=== PATIENT | female | born 1955 | race Caucasian/White ===

== ENCOUNTER 2019-08-21 17:17 | Emergency (ER) | payer MEDICAID ==
[~2019-08-21] VITALS: Ht 160 cm; Wt 60.0 kg
[~2019-08-21 17:17] MED LIST: ALBU18HF2 INH; ATOR40TA PO; BREX2TAB PO; BUPR150T8 PO; CLON-371 PO; CYCL-1 PO; DESV100T PO; FLUT1DIS4 INH; GABA-532 PO; LEVO175T7 PO; MELO-100 PO; POLY17PO10 PO; PRAZ5CAP PO; SENN-162 PO; TIOT4MIS3 INH; TRIA15OI9 TOP; VOLTAREN GEL 1% TOP
[2019-08-21 17:41] VITALS: BP 125/88
--- NOTE | 2019-08-21 18:30 | NUR ---
Received report and assumed care of patient from DANIEL Madera.
[2019-08-21] MEDS ORDERED: LORazepam 1 MG tablet PO ONE (19:00)
--- NOTE | 2019-08-21 19:00 | NUR ---
PA Bustillos is with patient at this time. No s/s of distress.
[2019-08-21] MEDS ORDERED: HYDR-3686 PO (20:20)
== END 2019-08-21 20:34 | disposition home or self-care (01) ==
LOC: ER 17:18
DX: F41.9 Anxiety disorder, unspecified (principal); J45.909 Unspecified asthma, uncomplicated; G89.29 Other chronic pain; Z90.710 Acquired absence of both cervix and uterus; Z98.890 Other specified postprocedural states; Z56.0 Unemployment, unspecified; Z88.1 Allergy status to other antibiotic agents; Z79.899 Other long term (current) drug therapy
CPT/HCPCS: 99284

== ENCOUNTER 2019-08-23 06:43 | Emergency (ER) | payer MEDICAID ==
[~2019-08-23] VITALS: Ht 157.5 cm; Wt 71.8 kg
[~2019-08-23 06:43] MED LIST changes: +HYDR-3686 PO
[2019-08-23] MEDS ORDERED: QUEtiapine 25mg tablet PO SCH (07:45)
[2019-08-23] MEDS ORDERED: QUEtiapine 25mg tablet PO ONE (08:00)
[2019-08-23 08:12] LABS: BASOPHILS # (AUTO) 0.1 X10'3 (0-0.2); EOSINOPHILS % (AUTO) 0.3 % (0-6); HEMATOCRIT 46.1 % (35.0-45.0); HEMOGLOBIN 15.7 g/dl (12.0-16.0); LYMPHOCYTES # (AUTO) 1.9 X10'3 (1.1-4.8); LYMPHOCYTES % (AUTO) 15.3 % (21-51); MEAN CORPUSCULAR HEMOGLOBIN 30.4 PG (27.0-31.0); MEAN CORPUSCULAR HGB CONC 34.1 g/dL (33.0-36.5); MEAN CORPUSCULAR VOLUME 89.2 FL (78-98); MEAN PLATELET VOLUME 9.6 FL (7.4-10.4); MONOCYTES # (AUTO) 0.6 X10'3 (0-0.9); NEUTROPHILS # (AUTO) 9.8 X10'3 (1.8-7.7); NEUTROPHILS % (AUTO) 78.4 % (42-75); PLATELET COUNT 297 X10'3 (140-440); RED BLOOD COUNT 5.17 X10'6 (4.20-5.60); RED CELL DISTRIBUTION WIDTH 14.1 % (11.5-14.5); WHITE BLOOD COUNT 12.5 X10'3 (4.5-11.0)
--- NOTE | 2019-08-23 08:14 | NUR ---
PATIENT STATES SHE IS FEELING ANXIOUS AND HAS HAD N/V X 2 DAYS. PATIENT IS TAKING MED FOR ANXIETY AND SHE STATES IT IS CAUSING THE N/V. ALERT AND TALKATIVE. APPEARS SLIGHTLY ANXIOUS AT THIS TIME.
[2019-08-23 09:17] LABS: ALANINE AMINOTRANSFERASE 49 U/L (12-78); ALBUMIN 4.1 G/DL (3.4-5.0); ALBUMIN/GLOBULIN RATIO 1.3 (1.1-1.5); ALKALINE PHOSPHATASE 74 IU/L (46-116); ASPARTATE AMINO TRANSFERASE 26 U/L (10-37); BILIRUBIN,TOTAL 0.6 MG/DL (0.1-1.0); BLOOD UREA NITROGEN 13 MG/DL (7-18); BUN/CREATININE RATIO 10.7 (6.6-38.0); CALCIUM 8.9 MG/DL (8.5-10.1); CHLORIDE 105 MMOL/L (99-107); CREATININE 1.21 MG/DL (0.40-0.90); GLUCOSE 103 MG/DL (70-104); POTASSIUM 3.8 MMOL/L (3.5-5.1); TOTAL CARBON DIOXIDE 23.4 MMOL/L (24-32); TOTAL PROTEIN 7.3 G/DL (6.4-8.2); eGFR 45 ML/MIN
[2019-08-23 09:20] LABS: SODIUM 139 MMOL/L (135-145)
[2019-08-23] MEDS ORDERED: LORazepam 2 mg/ml vial IV ONE (09:30)
--- NOTE | 2019-08-23 09:44 | NUR ---
PATIENT IS VISIBLY ANXIOUS AND WANTS TO LEAVE. NURSE SPOKE WITH PATIENT AND ASKED HER WHAT SHE PLANNED TO DO TO HELP HER ANXIETY. PATIENT IS UNABLE TO DECIDE, SO SHE IS STAYING. ORDERED ATIVAN FOR EXTREME ANXIETY FEELINGS AND PATIENT REASSURED TO REST ON GURNEY AND LET THE MEDICATION TAKE EFFECT. PATIENT IS COOPERATIVE AT THIS TIME.
[2019-08-23 09:45] LABS: ANION GAP 11 (8-16)
[2019-08-23 11:20] LABS: CLARITY,URINE CLOUDY (Clear); COLOR,URINE YELLOW (Yellow); GLUCOSE, URINE NEGATIVE (Neg); KETONES,URINE 15 mg/dl (Neg); LEUKOCYTE ESTERASE ,URINE NEGATIVE (Neg); NITRITES, URINE NEGATIVE (Neg); OCCULT BLOOD,URINE NEGATIVE (Neg); PH,URINE 7.5 (4.8-8.0); PROTEIN,URINE NEGATIVE (Neg); UROBILINOGEN,URINE 0.2 E.U/dL (0.2-1.0)
[2019-08-23 11:21] LABS: UA COLLECTION TYPE CLN CATCH MIDSTREAM
[2019-08-23 11:25] VITALS: BP 136/93
[2019-08-23 11:31] LABS: MUCUS STRANDS MODERATE /LPF (Neg); SQUAMOUS EPITHELIAL CELL,UR MANY /LPF (FEW)
[2019-08-23 11:32] LABS: BACTERIA,URINE 1+ /HPF (Neg); RBC,URINE 0-2 /HPF (0-2); WBC,URINE 0-4 /HPF (0-4)
== END 2019-08-23 11:27 | disposition home or self-care (01) ==
LOC: ER 06:44
DX: F41.9 Anxiety disorder, unspecified (principal); J45.909 Unspecified asthma, uncomplicated; G89.29 Other chronic pain; Z90.710 Acquired absence of both cervix and uterus; Z98.890 Other specified postprocedural states; Z60.2 Problems related to living alone; Z88.1 Allergy status to other antibiotic agents; Z79.899 Other long term (current) drug therapy
CPT/HCPCS: 36415; 80053; 81001; 85025; 96374; 99283; J2060

== ENCOUNTER 2019-08-26 11:20 | Emergency (ER) | payer MEDICAID ==
[~2019-08-26] VITALS: Ht 162.6 cm; Wt 71.0 kg
--- NOTE | 2019-08-26 11:42 | NUR ---
Pt brought to bed 26 by Janel ERIC, AOx4, mildly anxious, resting quietly
[2019-08-26 12:18] LABS: BASOPHILS # (AUTO) 0.1 X10'3 (0-0.2); EOSINOPHILS % (AUTO) 0.1 % (0-6); HEMATOCRIT 43.6 % (35.0-45.0); LYMPHOCYTES # (AUTO) 2.1 X10'3 (1.1-4.8); LYMPHOCYTES % (AUTO) 18.1 % (21-51); MEAN CORPUSCULAR HEMOGLOBIN 30.7 PG (27.0-31.0); MEAN CORPUSCULAR HGB CONC 34.4 g/dL (33.0-36.5); MEAN CORPUSCULAR VOLUME 89.4 FL (78-98); MEAN PLATELET VOLUME 9.7 FL (7.4-10.4); MONOCYTES # (AUTO) 0.5 X10'3 (0-0.9); MONOCYTES % (AUTO) 4.4 % (2-12); NEUTROPHILS # (AUTO) 8.8 X10'3 (1.8-7.7); NEUTROPHILS % (AUTO) 76.4 % (42-75); PLATELET COUNT 309 X10'3 (140-440); RED BLOOD COUNT 4.88 X10'6 (4.20-5.60); RED CELL DISTRIBUTION WIDTH 13.9 % (11.5-14.5); WHITE BLOOD COUNT 11.5 X10'3 (4.5-11.0)
[2019-08-26 12:25] LABS: ALANINE AMINOTRANSFERASE 33 U/L (12-78); ALBUMIN 4.1 G/DL (3.4-5.0); ALBUMIN/GLOBULIN RATIO 1.2 (1.1-1.5); ALKALINE PHOSPHATASE 72 IU/L (46-116); ANION GAP 13 (8-16); ASPARTATE AMINO TRANSFERASE 12 U/L (10-37); BILIRUBIN,TOTAL 0.6 MG/DL (0.1-1.0); BLOOD UREA NITROGEN 9 MG/DL (7-18); BUN/CREATININE RATIO 8.8 (6.6-38.0); CALCIUM 9.7 MG/DL (8.5-10.1); CHLORIDE 106 MMOL/L (99-107); CREATININE 1.02 MG/DL (0.40-0.90); GLUCOSE 109 MG/DL (70-104); POTASSIUM 3.6 MMOL/L (3.5-5.1); SODIUM 139 MMOL/L (135-145); TOTAL PROTEIN 7.4 G/DL (6.4-8.2); eGFR 55 ML/MIN
--- NOTE | 2019-08-26 12:30 | NUR ---
Pt resting comfortably, talking with hospital staff
[2019-08-26 12:38] LABS: URINE HCG NEGATIVE (NEG)
[2019-08-26 12:39] LABS: CLARITY,URINE SLIGHTLY CLOUDY (Clear); COLOR,URINE YELLOW (Yellow); GLUCOSE, URINE NEGATIVE (Neg); KETONES,URINE 15 mg/dl (Neg); LEUKOCYTE ESTERASE ,URINE NEGATIVE (Neg); NITRITES, URINE NEGATIVE (Neg); OCCULT BLOOD,URINE SMALL (Neg); PROTEIN,URINE NEGATIVE (Neg); UROBILINOGEN,URINE 0.2 E.U/dL (0.2-1.0)
[2019-08-26 12:44] LABS: ETHANOL < 0.010 GM/DL (0.0-0.010); UA COLLECTION TYPE CLN CATCH MIDSTREAM
[2019-08-26] MEDS ORDERED: LORazepam 1 MG tablet PO ONE (12:45)
[2019-08-26 12:46] LABS: MUCUS STRANDS MANY /LPF (Neg); SQUAMOUS EPITHELIAL CELL,UR MANY /LPF (FEW)
[2019-08-26 12:47] LABS: WBC,URINE 0-4 /HPF (0-4)
[2019-08-26 12:48] LABS: BACTERIA,URINE 1+ /HPF (Neg)
[2019-08-26 13:19] LABS: URINE AMPHETAMINE SCREEN NEGATIVE (Neg); URINE BARBITUATE SCREEN NEGATIVE (Neg); URINE BENZODIAZEPINES SCREEN NEGATIVE (Neg); URINE CANNABINOID SCREEN POSITIVE (Neg); URINE COCAINE SCREEN NEGATIVE (Neg); URINE METHADONE SCREEN NEGATIVE (Neg); URINE OPIATE SCREEN NEGATIVE (Neg); URINE PHENCYCLIDINE SCREEN NEGATIVE (Neg)
--- NOTE | 2019-08-26 13:30 | NUR ---
Pt resting quietly in bed, RN completed med rec with pt, received anti-anxiety medication and has responded well to administration
--- NOTE | 2019-08-26 14:30 | NUR ---
Pt resting with eyes closed, 14 respirations, unlabored and symmetrical, no distress noted
--- NOTE | 2019-08-26 15:07 | NUR ---
PACKET FAXED TO [facility]
--- NOTE | 2019-08-26 15:30 | NUR ---
Pt resting quietly with eyes closed on left side, 16 unlabored equal respirations.
--- NOTE | 2019-08-26 16:30 | NUR ---
Pt resting quietly with eyes closed, RR 20 unlabored and symmetrical, requested Nicotine patch
--- NOTE | 2019-08-26 17:22 | NUR ---
Pt resting with eyes closed, rr 16, unlabored, equal with no distress
--- NOTE | 2019-08-26 18:20 | NUR ---
Pt resting in bed, no signs of distress.
[2019-08-26] MEDS ORDERED: albuterol 2.5 MG/3 ML nebule NEB PRN (19:30)
[2019-08-26] MEDS ORDERED: triamcinolone acet 0.1% cream 15gm TP PRN (20:00)
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
[2019-08-26] MEDS ORDERED: NICOTINE POLACRILEX 2 MG LOZENGE BC ONE (21:00)
--- NOTE | 2019-08-26 21:00 | NUR ---
Prior to Minipress 4mg administration: BP 146/84, HR 71.
[2019-08-26] MEDS: prazosin 1mg capsule PO SCH (21:07)
[2019-08-26] MEDS: venlafaxine 25mg tablet PO SCH (21:07)
[2019-08-26] MEDS: hydrOXYzine 25 MG tablet PO PRN (21:08)
[2019-08-26] MEDS: cyclobenzaprine 10mg tablet PO PRN (21:08)
--- NOTE | 2019-08-27 00:05 | NUR ---
Pt sleeping on right side, respirations even and unlabored. No signs of distress.
--- NOTE | 2019-08-27 03:00 | NUR ---
Pt sleeping, no distress noted. On left side.
--- NOTE | 2019-08-27 03:15 | NUR ---
Luis A dave in ED - 08/27/19 at 0333 by DALIA FABIOLA Parrish at bedside to remove pts rings.
[2019-08-27] MEDS: hydrOXYzine 25 MG tablet PO PRN ×3 (05:34→13:12)
--- NOTE | 2019-08-27 05:35 | NUR ---
Pt appears anxious during vitals: sweaty, shaky, endorsing 9/10 anxiety. "It's always in the morning, I just wake up with a panic attack." Pt given atarax 50mg and a couple warm blankets, then pt returned to resting.
[2019-08-27] MEDS ORDERED: levoTHYROXINE 25mcg tablet PO SCH (07:00)
[2019-08-27] MEDS ORDERED: levoTHYROXINE 112mcg tablet PO SCH (07:00)
--- NOTE | 2019-08-27 07:00 | NUR ---
Received report from Chanel. Pt sleeping at this time.
[2019-08-27] MEDS ORDERED: ondansetron 4mg rapidly disintigrating tab PO PRN (07:40)
[2019-08-27] MEDS ORDERED: MELOXICAM PO SCH (08:00)
[2019-08-27] MEDS ORDERED: buPROPion SR 150mg tablet PO SCH (08:00)
[2019-08-27] MEDS ORDERED: nicotine 14mg patch - 24hr TD SCH (08:00)
--- NOTE | 2019-08-27 08:19 | NUR ---
Patient awoke and went to BR. Pt. is c/o nausea, obtained order for Zofran, given with good effect. Pt. now sitting up eating breakfast. Will continue to monitor.
[2019-08-27] MEDS: cyclobenzaprine 10mg tablet PO PRN ×2 (08:40→19:10)
[2019-08-27] MEDS: venlafaxine 25mg tablet PO SCH ×3 (08:40→20:21)
[2019-08-27] MEDS: gabapentin 300mg capsule PO SCH ×3 (08:43→16:44)
--- NOTE | 2019-08-27 10:47 | NUR ---
Pt. sleeping on left side. Respirations are even and nonlabored. Will continue to monitor.
--- NOTE | 2019-08-27 13:54 | NUR ---
Patient ate lunch and requested Atarax, now sleeping. Respirations are even and nonlabored.
[2019-08-27] MEDS ORDERED: acetaminophen 325mg tablet PO PRN (14:30)
--- NOTE | 2019-08-27 15:35 | NUR ---
Patient states that she has been thinking of cutting herself with a razor lately. She states that she is not suicidal today. Patient has experienced significant stressors which are causing patient to have anxiety, depression and has been nauseated. Patient was treated for H/A with Tylenol with good effect. Pt. denies SANDRA MORALES. Talking on telephone at this time.
--- NOTE | 2019-08-27 17:00 | NUR ---
Patient has been accepted at [facility] by CATALINA Regan. Pickup will be between 20:00 to 20:30. Patient resting comfortably in bed.
--- NOTE | 2019-08-27 18:07 | NUR ---
Patient's exhusband is visiting at bedside. Informed pt. when she awoke that she would be discharging to [facility]. Pt. states that she does not want to be locked up anywhere. She thinks this has all started because she has been smoking THC and drinking for last 3 weeks.
--- NOTE | 2019-08-27 19:15 | NUR ---
Pt is sitting up in bed conversing with her who is at bedside. Pt complains of a headache and muscle spasms to her neck. She requests prn flexiril. PRN tylenol is available at 2100.
--- NOTE | 2019-08-27 20:20 | NUR ---
Pt reports that she has a headache and is having some anxiety about transfering to [facility]. Pt given scheduled HS medication at this time. PRN tylenol and PRN atarax is available at 2100.
[2019-08-27] MEDS: prazosin 1mg capsule PO SCH (20:21)
--- NOTE | 2019-08-27 21:00 | NUR ---
[facility] transporter Meka is picking the patient up for transfer at this time. Pt has been dressed in her own clothing. Personal items have been returned to the patient and picked up by the transporter, inventory completed and matched with patient signing in agreeance. Medications were picked up from pharmacy and given to the transporter. Pt denies distress at this time and is calm and in agreeance with transfer. She is being escorted by security out of overflow with transporter Meka.
[2019-08-27 21:02] VITALS: BP 141/88
== END 2019-08-27 21:00 ==
LOC: ER 13:19
DX: F41.9 Anxiety disorder, unspecified (principal); R45.851 Suicidal ideations; G89.29 Other chronic pain; J45.909 Unspecified asthma, uncomplicated; M19.90 Unspecified osteoarthritis, unspecified site; F17.200 Nicotine dependence, unspecified, uncomplicated; F10.10 Alcohol abuse, uncomplicated; F12.90 Cannabis use, unspecified, uncomplicated; Z60.2 Problems related to living alone; Z98.890 Other specified postprocedural states; Z88.1 Allergy status to other antibiotic agents; Z79.899 Other long term (current) drug therapy; Y90.0 Blood alcohol level of less than 20 mg/100 ml
CPT/HCPCS: 36415; 80053; 80305; 80320; 81001; 81025; 84443; 85025; 99285; Z7610

== ENCOUNTER 2019-09-14 14:36 | Emergency (ER) | payer MEDICAID ==
[~2019-09-14] VITALS: Ht 157.5 cm; Wt 70.5 kg
[~2019-09-14 14:36] MED LIST changes: -ATOR40TA PO; -BREX2TAB PO; -CLON-371 PO; -FLUT1DIS4 INH; -HYDR-3686 PO; -POLY17PO10 PO; -SENN-162 PO; -TIOT4MIS3 INH
[2019-09-14] MEDS ORDERED: LORazepam 1 MG tablet PO ONE (15:00)
[2019-09-14] MEDS ORDERED: ondansetron 4mg rapidly disintigrating tab PO ONE (15:00)
[2019-09-14 15:15] LABS: CLARITY,URINE CLEAR (Clear); COLOR,URINE YELLOW (Yellow); GLUCOSE, URINE NEGATIVE (Neg); KETONES,URINE TRACE mg/dl (Neg); LEUKOCYTE ESTERASE ,URINE TRACE (Neg); NITRITES, URINE NEGATIVE (Neg); OCCULT BLOOD,URINE NEGATIVE (Neg); PROTEIN,URINE NEGATIVE (Neg); UA COLLECTION TYPE CLN CATCH MIDSTREAM; UROBILINOGEN,URINE 0.2 E.U/dL (0.2-1.0)
[2019-09-14 15:20] LABS: BASOPHILS # (AUTO) 0.1 X10'3 (0-0.2); EOSINOPHILS % (AUTO) 0.4 % (0-6); HEMOGLOBIN 15.7 g/dl (12.0-16.0); LYMPHOCYTES % (AUTO) 15.9 % (21-51); MEAN CORPUSCULAR HEMOGLOBIN 30.8 PG (27.0-31.0); MEAN CORPUSCULAR HGB CONC 34.2 g/dL (33.0-36.5); MEAN CORPUSCULAR VOLUME 90.2 FL (78-98); MEAN PLATELET VOLUME 9.5 FL (7.4-10.4); MONOCYTES # (AUTO) 0.8 X10'3 (0-0.9); MONOCYTES % (AUTO) 6.3 % (2-12); NEUTROPHILS # (AUTO) 9.5 X10'3 (1.8-7.7); NEUTROPHILS % (AUTO) 76.4 % (42-75); PLATELET COUNT 399 X10'3 (140-440); RED CELL DISTRIBUTION WIDTH 13.9 % (11.5-14.5); WHITE BLOOD COUNT 12.5 X10'3 (4.5-11.0)
[2019-09-14 15:24] LABS: MUCUS STRANDS MODERATE /LPF (Neg); SQUAMOUS EPITHELIAL CELL,UR MODERATE /LPF (FEW)
[2019-09-14 15:25] LABS: BACTERIA,URINE FEW /HPF (Neg); RBC,URINE 0-2 /HPF (0-2); TRANSITIONAL EPI CELLS,URINE FEW /HPF; WBC,URINE 0-4 /HPF (0-4)
[2019-09-14 15:27] LABS: URINE AMPHETAMINE SCREEN NEGATIVE (Neg); URINE BARBITUATE SCREEN NEGATIVE (Neg); URINE BENZODIAZEPINES SCREEN NEGATIVE (Neg); URINE CANNABINOID SCREEN POSITIVE (Neg); URINE COCAINE SCREEN NEGATIVE (Neg); URINE METHADONE SCREEN NEGATIVE (Neg); URINE OPIATE SCREEN NEGATIVE (Neg); URINE PHENCYCLIDINE SCREEN NEGATIVE (Neg)
[2019-09-14 15:34] LABS: ALANINE AMINOTRANSFERASE 21 U/L (12-78); ALBUMIN 4.5 G/DL (3.4-5.0); ALBUMIN/GLOBULIN RATIO 1.3 (1.1-1.5); ALKALINE PHOSPHATASE 71 IU/L (46-116); ANION GAP 12 (8-16); ASPARTATE AMINO TRANSFERASE 10 U/L (10-37); BILIRUBIN,TOTAL 0.4 MG/DL (0.1-1.0); BLOOD UREA NITROGEN 9 MG/DL (7-18); BUN/CREATININE RATIO 7.6 (6.6-38.0); CHLORIDE 106 MMOL/L (99-107); CREATININE 1.18 MG/DL (0.40-0.90); GLUCOSE 92 MG/DL (70-104); POTASSIUM 3.6 MMOL/L (3.5-5.1); SODIUM 143 MMOL/L (135-145); TOTAL CARBON DIOXIDE 25.2 MMOL/L (24-32); TOTAL PROTEIN 7.9 G/DL (6.4-8.2); eGFR 46 ML/MIN
[2019-09-14 15:38] VITALS: BP 124/76
[2019-09-14] MEDS ORDERED: ONDA4TAB6 PO (15:42)
[2019-09-14] MEDS ORDERED: LORA-269 PO (15:42)
== END 2019-09-14 15:54 | disposition home or self-care (01) ==
LOC: ER 14:36
DX: F41.9 Anxiety disorder, unspecified (principal); F41.0 Panic disorder [episodic paroxysmal anxiety]; R11.0 Nausea; J45.909 Unspecified asthma, uncomplicated; G89.29 Other chronic pain; M19.90 Unspecified osteoarthritis, unspecified site; F12.90 Cannabis use, unspecified, uncomplicated; Z90.710 Acquired absence of both cervix and uterus; Z98.890 Other specified postprocedural states; Z60.2 Problems related to living alone; Z88.1 Allergy status to other antibiotic agents; Z79.899 Other long term (current) drug therapy
CPT/HCPCS: 36415; 80053; 80305; 81001; 85025; 87088; 99283

== ENCOUNTER 2019-10-13 02:51 | Emergency (ER) | payer MEDICAID ==
[~2019-10-13] VITALS: Ht 157.5 cm; Wt 80.0 kg
[~2019-10-13 02:51] MED LIST changes: +LORA-269 PO; +ONDA4TAB6 PO
[2019-10-13] MEDS ORDERED: LORazepam 2 mg/ml vial IM ONE (03:00)
[2019-10-13] MEDS ORDERED: ondansetron 4mg rapidly disintigrating tab PO ONE (03:15)
--- NOTE | 2019-10-13 03:31 | NUR ---
pt given ativan 20 min ago. she remains tearful and is cruing and stating "its not working" over and over. Also nauseaus. Verbal received form Titus for humza vaughan. VSS. Awaiting er
--- NOTE | 2019-10-13 04:12 | NUR ---
dr aden talking with pt and reports to her she will be discharged and she will need to follow up with her MH practioner for help w/anxiety meds. Pt reports her practioners are not helping her. MD reports she will be given resources for other practioners , but that this is not a reason to keep her in ER.
--- NOTE | 2019-10-13 04:30 | NUR ---
pt ready for dc, but was given ativan 1 hr ago and she drove herself here ans is not allowed to drive right now. Pt settled in her room. given blankets and pillow and lights dimmed
--- NOTE | 2019-10-13 05:48 | NUR ---
pt remains in her room,sleeping with blankets covering to her shouders, lying on hre left side, RR 14 and unlabored.
--- NOTE | 2019-10-13 06:33 | NUR ---
DR. COURTNEY REPORTS THAT PT WILL BE REEVALUATED BY HIM AND HAVE GAIT TEST AT 8 AM TO SEE IF SHE WILL BE SAFE FOR DRIVING HERSELF HOME.
--- NOTE | 2019-10-13 08:21 | NUR ---
PT SLEEPING, BUT AROUSABLE, DROWSY. FELL BACK TO SLEEP. WILL REASSESS AT 0900 TO SEE IF PT CAN DRIVE SAFELY HOME
--- NOTE | 2019-10-13 09:06 | NUR ---
pt awake but drowsy. pt states, i dont feel safe enough to drive. refuses taxi
[2019-10-13 09:07] VITALS: BP 141/76
--- NOTE | 2019-10-13 09:08 | NUR ---
PT REQUESTING A PRESCIPTION FOR ANXIETY MED. INFORMED DR. NOVAK.
[2019-10-13] MEDS ORDERED: LORA-269 PO (09:27)
[2019-10-13] MEDS ORDERED: ATI1T PO (09:32)
--- NOTE | 2019-10-13 09:42 | NUR ---
PT ALERT. AMBULATED AROUND THE ER WITH STEADY GAIT.
--- NOTE | 2019-10-13 09:43 | NUR ---
UP TO BR VOIDED X1
== END 2019-10-13 09:51 | disposition home or self-care (01) ==
LOC: ER 02:52
DX: F41.9 Anxiety disorder, unspecified (principal); I10 Essential (primary) hypertension; J45.909 Unspecified asthma, uncomplicated; G89.29 Other chronic pain; F17.200 Nicotine dependence, unspecified, uncomplicated; F10.10 Alcohol abuse, uncomplicated; Z90.710 Acquired absence of both cervix and uterus; Z98.890 Other specified postprocedural states; Z88.1 Allergy status to other antibiotic agents; Z79.899 Other long term (current) drug therapy; Y90.9 Presence of alcohol in blood, level not specified
CPT/HCPCS: 96372; 99283; J2060

== ENCOUNTER 2019-10-18 14:19 | Emergency (ER) | payer MEDICAID ==
[~2019-10-18] VITALS: Ht 157.5 cm; Wt 69.8 kg
[~2019-10-18 14:19] MED LIST changes: +ATI1T PO
[2019-10-18 14:29] VITALS: BP 112/63
[2019-10-18 14:40] LABS: BASOPHILS # (AUTO) 0.1 X10'3 (0-0.2); BASOPHILS % (AUTO) 0.7 % (0-1); EOSINOPHILS % (AUTO) 0.1 % (0-6); HEMATOCRIT 45.2 % (35.0-45.0); HEMOGLOBIN 15.2 g/dl (12.0-16.0); LYMPHOCYTES # (AUTO) 1.7 X10'3 (1.1-4.8); LYMPHOCYTES % (AUTO) 14.1 % (21-51); MEAN CORPUSCULAR HEMOGLOBIN 30.7 PG (27.0-31.0); MEAN CORPUSCULAR HGB CONC 33.6 g/dL (33.0-36.5); MEAN CORPUSCULAR VOLUME 91.1 FL (78-98); MEAN PLATELET VOLUME 9.3 FL (7.4-10.4); MONOCYTES # (AUTO) 0.6 X10'3 (0-0.9); MONOCYTES % (AUTO) 4.8 % (2-12); NEUTROPHILS # (AUTO) 9.8 X10'3 (1.8-7.7); NEUTROPHILS % (AUTO) 80.3 % (42-75); PLATELET COUNT 320 X10'3 (140-440); RED BLOOD COUNT 4.96 X10'6 (4.20-5.60); RED CELL DISTRIBUTION WIDTH 14.3 % (11.5-14.5); WHITE BLOOD COUNT 12.3 X10'3 (4.5-11.0)
[2019-10-18 14:54] LABS: ALANINE AMINOTRANSFERASE 25 U/L (12-78); ALBUMIN 4.3 G/DL (3.4-5.0); ALBUMIN/GLOBULIN RATIO 1.3 (1.1-1.5); ALKALINE PHOSPHATASE 65 IU/L (46-116); ANION GAP 10 (8-16); ASPARTATE AMINO TRANSFERASE 12 U/L (10-37); BILIRUBIN,TOTAL 0.4 MG/DL (0.1-1.0); BLOOD UREA NITROGEN 7 MG/DL (7-18); BUN/CREATININE RATIO 6.1 (6.6-38.0); CALCIUM 9.7 MG/DL (8.5-10.1); CHLORIDE 104 MMOL/L (99-107); CREATININE 1.14 MG/DL (0.40-0.90); GLUCOSE 106 MG/DL (70-104); POTASSIUM 3.9 MMOL/L (3.5-5.1); SODIUM 139 MMOL/L (135-145); TOTAL CARBON DIOXIDE 25.4 MMOL/L (24-32); TOTAL PROTEIN 7.6 G/DL (6.4-8.2); eGFR 48 ML/MIN
[2019-10-18] MEDS ORDERED: magnesium oxide 400mg tablet PO ONE (14:55)
[2019-10-18] MEDS ORDERED: diazepam 5mg tablet PO ONE (15:00)
[2019-10-18] MEDS ORDERED: VAL5T PO (15:11)
== END 2019-10-18 15:39 | disposition home or self-care (01) ==
LOC: ER 14:19
DX: F41.9 Anxiety disorder, unspecified (principal); I10 Essential (primary) hypertension; J45.909 Unspecified asthma, uncomplicated; G89.29 Other chronic pain; F10.10 Alcohol abuse, uncomplicated; Z90.710 Acquired absence of both cervix and uterus; Z98.890 Other specified postprocedural states; Z60.2 Problems related to living alone; Z88.1 Allergy status to other antibiotic agents; Z79.899 Other long term (current) drug therapy
CPT/HCPCS: 36415; 71045; 80053; 84484; 85025; 93005; 99285

== ENCOUNTER 2020-01-31 09:58 | Emergency (ER) | payer MEDICAID ==
[~2020-01-31] VITALS: Ht 157.5 cm; Wt 63.9 kg
[2020-01-31 10:24] VITALS: BP 129/81
[2020-01-31] MEDS ORDERED: TETanus/Pertussis (Acell)/Diphther VAC/PF (Tdap-Adult) 0.5ml syringe IMVAC ONE (11:30)
== END 2020-01-31 12:53 | disposition home or self-care (01) ==
LOC: ER 09:58
DX: S61.212A Laceration without foreign body of right middle finger without damage to nail, initial encounter (principal); I10 Essential (primary) hypertension; J45.909 Unspecified asthma, uncomplicated; G89.29 Other chronic pain; F41.9 Anxiety disorder, unspecified; Z90.710 Acquired absence of both cervix and uterus; F10.10 Alcohol abuse, uncomplicated; Z60.2 Problems related to living alone; Z88.1 Allergy status to other antibiotic agents; Z79.899 Other long term (current) drug therapy; X58.XXXA Exposure to other specified factors, initial encounter; Y93.89 Activity, other specified; Y92.89 Other specified places as the place of occurrence of the external cause; Y99.8 Other external cause status
CPT/HCPCS: 90471; 90715; 99283

== ENCOUNTER 2022-03-17 13:15 | Emergency (ER) | payer MEDICARE, MEDICAID ==
[~2022-03-17] VITALS: Ht 157.5 cm; Wt 63.6 kg
[2022-03-17 13:33] VITALS: BP 148/85
[2022-03-17] MEDS ORDERED: CEPH250T PO (15:03)
== END 2022-03-17 15:40 | disposition home or self-care (01) ==
LOC: ER 13:16
DX: L03.114 Cellulitis of left upper limb (principal); M79.642 Pain in left hand; I10 Essential (primary) hypertension; J45.909 Unspecified asthma, uncomplicated; G89.29 Other chronic pain; F41.9 Anxiety disorder, unspecified; Z90.710 Acquired absence of both cervix and uterus; Z98.890 Other specified postprocedural states; Z72.89 Other problems related to lifestyle; Z60.2 Problems related to living alone; Z88.1 Allergy status to other antibiotic agents; Z79.2 Long term (current) use of antibiotics; Z79.899 Other long term (current) drug therapy
CPT/HCPCS: 99283

== ENCOUNTER 2023-01-09 19:03 | Emergency (ER) | payer MEDICARE, MEDICAID ==
[~2023-01-09] VITALS: Ht 157.5 cm; Wt 68.0 kg
[2023-01-09 19:15] VITALS: BP 154/93
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
[2023-01-09] MEDS ORDERED: HYDROcodone/acetaminophen 10/325mg tab PO ONE (20:45)
[2023-01-09] MEDS ORDERED: TRAM50TA2 PO (23:08)
== END 2023-01-09 23:19 | disposition home or self-care (01) ==
LOC: ER 20:48
DX: S72.091A Other fracture of head and neck of right femur, initial encounter for closed fracture (principal); I10 Essential (primary) hypertension; J45.909 Unspecified asthma, uncomplicated; G89.29 Other chronic pain; M54.9 Dorsalgia, unspecified; F41.9 Anxiety disorder, unspecified; Z88.1 Allergy status to other antibiotic agents; Z79.899 Other long term (current) drug therapy; V19.9XXA Pedal cyclist (driver) (passenger) injured in unspecified traffic accident, initial encounter; Y93.89 Activity, other specified; Y92.89 Other specified places as the place of occurrence of the external cause; Y99.8 Other external cause status
CPT/HCPCS: 73502; 73700; 99284

== ENCOUNTER 2023-11-27 10:41 | Outpatient (CLI) | payer MEDICARE, MEDICAID | END 2023-11-27 23:59 | disposition home or self-care (01) | LOC: MRI 10:41 | PROVIDERS: ATTEND Orthopaedic Surgery | DX: M19.011 Primary osteoarthritis, right shoulder (principal); M75.51 Bursitis of right shoulder; M25.511 Pain in right shoulder | CPT/HCPCS: 73221 ==